=== PATIENT | female | born 1955 | race Two or more races ===

== ENCOUNTER 2017-12-05 10:43 | Outpatient (CLI) | payer OTHER | END 2017-12-05 10:57 | disposition home or self-care (01) | LOC: NUCLEAR 10:43 | DX: I20.1 Angina pectoris with documented spasm (principal) | CPT/HCPCS: 78452; 93017; A9500 ==

== ENCOUNTER → 2018-04-13 16:11 | Outpatient (CLI) | payer OTHER | END | disposition home or self-care (01) | LOC: LAB 16:11 | DX: N30.00 Acute cystitis without hematuria (principal) ==

== ENCOUNTER → 2023-07-29 | Emergency (ER) | payer OTHER ==
[~2023-07-29] VITALS: Ht 149.9 cm; Wt 56.7 kg
[~2023-07-29] MED LIST: ATENOLOL25 MG PO; ATORVASTATIN CA40 MG PO; LOSARTAN POTASS50 MG PO
== END | disposition left against medical advice (07) ==
LOC: ER 20:09
DX: Z53.21 Procedure and treatment not carried out due to patient leaving prior to being seen by health care provider (principal)